=== PATIENT | male | born 1945 | race Hispanic/Latino ===

== ENCOUNTER 2019-08-04 01:55 | Emergency (ER) | payer OTHER ==
[~2019-08-04 01:55] MED LIST: ASPI-1012 PO; ATOR10 PO; GLUC-145 PO; HYDR-4457 PO
[2019-08-04] MEDS ORDERED: TRAMADOL HCL 50 MG TABLET ONE (04:36)
== END 2019-08-04 05:46 | disposition home or self-care (01) ==
LOC: EDH 01:55
DX: M54.5 Low back pain (principal); E78.00 Pure hypercholesterolemia, unspecified; I63.9 Cerebral infarction, unspecified; Z98.890 Other specified postprocedural states
CPT/HCPCS: 72131